=== PATIENT | female | born 1960 | race Two or more races ===

== ENCOUNTER 2018-06-07 14:13 | Outpatient (CLI) | payer OTHER | END 2018-06-07 14:30 | disposition home or self-care (01) | LOC: MAMO-SONO 14:13 | DX: Z12.31 Encounter for screening mammogram for malignant neoplasm of breast (principal); N60.11 Diffuse cystic mastopathy of right breast; N60.12 Diffuse cystic mastopathy of left breast; N61.0 Mastitis without abscess ==

== ENCOUNTER 2019-06-02 11:04 | Outpatient (CLI) | payer OTHER | END 2019-06-02 11:07 | disposition home or self-care (01) | LOC: NUCLEAR 11:04 | DX: M81.0 Age-related osteoporosis without current pathological fracture (principal) ==

== ENCOUNTER 2019-06-09 13:26 | Outpatient (CLI) | payer OTHER | END 2019-06-09 14:59 | disposition home or self-care (01) | LOC: MAMO-SONO 13:26 | DX: Z12.31 Encounter for screening mammogram for malignant neoplasm of breast (principal); N60.11 Diffuse cystic mastopathy of right breast; N60.12 Diffuse cystic mastopathy of left breast ==

== ENCOUNTER 2020-04-23 07:32 | Outpatient (CLI) | payer OTHER | END 2020-04-23 07:33 | disposition home or self-care (01) | LOC: MAMO-SONO 07:32 | PROVIDERS: ATTEND Specialist | DX: Z12.31 Encounter for screening mammogram for malignant neoplasm of breast (principal); Z87.898 Personal history of other specified conditions; N60.11 Diffuse cystic mastopathy of right breast; N60.12 Diffuse cystic mastopathy of left breast ==